=== PATIENT | male | born 1935 | race American Indian/Alaskan Native ===

== ENCOUNTER 2016-08-31 15:24 | Outpatient (CLI) | payer MEDICARE ==
--- NOTE | 2016-08-31 16:51 | XRay Report ---
LEFT FOREARM: History: Pain. AP and lateral views of the forearm demonstrate normal mineralization and contours for this patient's age. No destructive changes are noted and the adjacent soft tissues are normal. IMPRESSION: Normal left forearm.
--- NOTE | 2016-08-31 16:52 | XRay Report ---
LEFT SHOULDER: History: Shoulder pain. Routine views demonstrate normal bony and soft tissue structures with normal joint alignment of the shoulder. IMPRESSION: Normal study.
== END 2016-08-31 15:25 | disposition home or self-care (01) ==
LOC: XRAY 15:24
PROVIDERS: ATTEND Internal Medicine
DX: M25.512 Pain in left shoulder (principal); M79.632 Pain in left forearm

== ENCOUNTER 2017-08-16 06:08 | Observation (INO) | payer MEDICARE ==
[~2017-08-16 06:08] MED LIST: ANCEF/STERILE WATER 2 GM/20 ML 2 GM/20 ML SYRINGE IV NR; DILAUDID IV PRN; FLAGYL 500 MG/100 ML 500 MG/100 ML BAG IV NR; MARCAINE-EPI 0.5%-1:200,000 INFILTRATI ONE; NACL 0.9% IR ONE; XYLOCAINE 1% 20 mL IR ONE
[2017-08-16] MEDS ORDERED: MARCAINE-EPI 0.5%-1:200,000 INFILTRATI ONE ×2 (06:40→07:51)
[2017-08-16] MEDS ORDERED: XYLOCAINE 1% 20 mL ONE (06:40)
[2017-08-16] MEDS ORDERED: NACL BACTERIOSTATIC INFILTRATI ONE (06:45)
--- NOTE | 2017-08-16 07:02 | Anesthesia Consultation ---
Anesthesia Consult and Med Hx Date of service: 08/16/17 - Airway Anesthetic Teeth Evaluation: Poor ROM Head & Neck: Adequate Mental/Hyoid Distance: Adequate Mallampati Class: Class II Intubation Access Assessment: Probably Good - Pulmonary Exam CTA: Yes - Cardiac Exam Cardiac Exam: RRR - Pre-Operative Health Status ASA Pre-Surgery Classification: ASA3 Proposed Anesthetic Plan: General - Pulmonary Hx Smoking: Yes (QUIT OVER 30 YEARS AGO) - Cardiovascular System Hx Hypertension: Yes (1-2 YEARS) - Central Nervous System Hx Psychiatric Problems: No - Other Systems Hx Alcohol Use: No Hx Substance Use: No Hx Cancer: No
[2017-08-16] MEDS ORDERED: DILAUDID IV PRN ×3 (07:03→13:27)
[2017-08-16] MEDS ORDERED: ZOFRAN IV PRN (07:03)
[2017-08-16] MEDS ORDERED: PERCOCET 5/325 PO PRN (07:03)
--- NOTE | 2017-08-16 07:03 | Anesthesia Day of Surgery ---
Anesthesia Day of Surgery - Day of Surgery Patient Examined: Yes Patient H&P Reviewed: Yes Patient is NPO: Yes Cardiac Clearance: Yes
[2017-08-16] MEDS ORDERED: BLOXIVERZ ONE (07:43)
[2017-08-16] MEDS ORDERED: ZEMURON IV ONE (07:43)
[2017-08-16] MEDS ORDERED: SUBLIMAZE ONE (07:43)
[2017-08-16] MEDS ORDERED: ZOFRAN ONE (07:43)
[2017-08-16] MEDS ORDERED: ROBINUL ONE (07:43)
[2017-08-16] MEDS ORDERED: QUELICIN ONE (07:43)
[2017-08-16] MEDS ORDERED: DIPRIVAN 10 MG/ML IV ONE (07:44)
[2017-08-16] MEDS ORDERED: XYLOCAINE MPF 2% ONE (07:44)
[2017-08-16] MEDS ORDERED: NACL 0.9% IR ONE (07:51)
[2017-08-16] MEDS ORDERED: XYLOCAINE 1% 20 mL IR ONE (07:51)
[2017-08-16] MEDS ORDERED: NACL 0.9% 1000 ML 1,000 ML IV SCH (08:00)
[2017-08-16] MEDS ORDERED: FLAGYL 500 MG/100 ML 500 MG/100 ML BAG IV NR (08:00)
[2017-08-16] MEDS ORDERED: LOVENOX SUB-Q NR (08:00)
[2017-08-16] MEDS ORDERED: ANCEF/STERILE WATER 2 GM/20 ML 2 GM/20 ML SYRINGE IV NR (08:00)
[2017-08-16] MEDS ORDERED: ROBINUL IV NR (08:00)
[2017-08-16] MEDS ORDERED: NEURONTIN PO NR (08:00)
[2017-08-16] MEDS ORDERED: VERSED IV NR (08:00)
[2017-08-16] MEDS ORDERED: D50W (25GM) Syringe IV ONE (08:10)
[2017-08-16] MEDS ORDERED: NEO SYNEPHRINE/NS Syringe(OR USE) IV ONE (08:19)
[2017-08-16] MEDS ORDERED: NACL 0.9% 1000 ML 1,000 ML ONE (08:47)
--- NOTE | 2017-08-16 09:43 | Discharge Summary ---
Providers - Providers Date of Admission: 08/16/2017 Date of discharge: 08/16/17 Attending physician: VIRGEN CANTU Primary care physician: SELINA KOO Hospitalization Condition: Good Procedures: laparoscopic left inguinal hernia repair and ventral hernia repair Disposition: DC-01 TO HOME OR SELFCARE - Discharge Diagnoses (1) Inguinal hernia Status: Acute Qualifiers: Obstruction and gangrene presence: with obstruction but without gangrene Laterality: unilateral Recurrence: non-recurrent Qualified Code(s): K40.30 - Unilateral inguinal hernia, with obstruction, without gangrene, not specified as recurrent (2) Ventral hernia Status: Acute Qualifiers: Obstruction and gangrene presence: without obstruction or gangrene Qualified Code(s): K43.9 - Ventral hernia without obstruction or gangrene Core Measure Documentation - Palliative Care Palliative Care/ Comfort Measures: Not Applicable - Core Measures Any of the following diagnoses?: none Exam - Constitutional General appearance: Present: no acute distress, well-nourished - EENT Eyes: Present: PERRL, EOM intact ENT: hearing intact, clear oral mucosa, dentition normal - Neck Neck: Present: supple, normal ROM - Respiratory Respiratory: bilateral: CTA - Cardiovascular Rhythm: regular - Extremities Extremities: no ischemia, pulses intact, pulses symmetrical, No edema, normal temperature, normal color, Full ROM Peripheral Pulses: within normal limits - Abdominal General gastrointestinal: Present: soft, non-tender, normal bowel sounds Male genitourinary: Present: normal - Rectal Rectal Exam: deferred - Integumentary Integumentary: Present: clear, warm, dry - Musculoskeletal Musculoskeletal: strength equal bilaterally - Psychiatric Psychiatric: appropriate mood/affect Plan Activity: advance as tolerated (no heavy lifting) Weight Bearing Status: Full Weight Bearing Diet: regular Wound: keep clean and dry Follow up with: SELINA KOO MD [Primary Care Provider] - 7 Days VIRGEN CANTU MD [Staff Physician] - 3 Days Prescriptions: oxyCODONE /ACETAMINOPHEN [Percocet 5/325 mg] 1 tab PO ONCE PRN 10 Days #20 tablet PRN Reason: Pain, Moderate (4-6)
[2017-08-16] MEDS ORDERED: MORPHINE IV PRN (13:27)
[2017-08-16] MEDS: PERCOCET 5/325 PO PRN (16:50)
[2017-08-16] MEDS: LACTATED RINGERS 1,000 ML IV SCH (17:11)
[2017-08-16] MEDS ORDERED: MOBIC PO PRN ×2 (19:47→21:00)
[2017-08-16] MEDS: CARAFATE PO SCH (22:16)
[2017-08-16] MEDS: HumaLOG SUB-Q SCH (22:17)
[2017-08-17] MEDS: LACTATED RINGERS 1,000 ML IV SCH ×3 (03:36→17:14)
[2017-08-17] MEDS: HumaLOG SUB-Q SCH ×7 (03:38→23:35)
[2017-08-17 05:11] LABS: Basophils % (Auto) 0.5 % (0.0-1.8); Eosinophils % (Auto) 0.5 % (0.0-4.3); Hematocrit 46.7 % (35.5-45.6); Hemoglobin 15.6 gm/dl (11.8-15.2); Lymphocytes # (Auto) 1.4 K/mm3 (1.2-5.4); Lymphocytes % (Auto) 15.6 % (13.4-35.0); Mean Corpuscular HGB Conc 33 % (32-34); Mean Corpuscular Hemoglobin 29 pg (28-32); Mean Corpuscular Volume 88 fl (84-94); Monocytes # (Auto) 0.6 K/mm3 (0.0-0.8); Monocytes % (Auto) 6.9 % (0.0-7.3); Platelet Count 258 K/mm3 (140-440); Red Blood Count 5.29 M/mm3 (3.65-5.03)
[2017-08-17 05:18] LABS: BUN/Creatinine Ratio 14; Blood Urea Nitrogen 14 mg/dL (9-20); Calcium 9.5 mg/dL (8.4-10.2); Hemolysis Index 28
[2017-08-17] MEDS: CARAFATE PO SCH ×4 (05:52→23:33)
[2017-08-17] MEDS: PERCOCET 5/325 PO PRN (07:30)
--- NOTE | 2017-08-17 09:06 | Operative Report ---
PREOPERATIVE DIAGNOSIS: Left incarcerated inguinal hernia, large. POSTOPERATIVE DIAGNOSIS: Incarcerated left inguinal hernia with sigmoid colon incarceration into the hernial defect. PROCEDURE: Laparoscopic reduction of incarcerated hernia and subsequent extraperitoneal laparoscopic left inguinal hernia repair. SURGEON: Fidel Oglesby MD DIRECTOR OF STAFF DEVELOPMENT: Jose Francisco Hill. ANESTHESIA: General. DESCRIPTION OF PROCEDURE: The patient was placed on the operating table in the dorsal supine position and following satisfactory induction of general anesthesia, the abdomen, groin, and testicles were prepped using Hibiclens solution and scrubbed and draped in a sterile fashion. With the patient completely relaxed, we attempted to reduce the incarcerated hernia without success. We therefore proceeded to perform a diagnostic laparoscopy. A diagnostic laparoscopy was performed and it was noted that the patient after placing trocars inside the abdominal cavity and a video camera, the patient had incarcerated sigmoid colon into this area. We therefore just gently teased out with pulling off from the inside and pushing from the outside. We gently removed this segment of bowel from the incarcerated hernial defect. There was no evidence of any blood supply compromise. Therefore, this was an incarceration and no strangulation was noted. Following completion of the reduction, we then prepared to perform the hernia repair in an extraperitoneal fashion. The abdominal cavity was then desufflated. An incision was made at the umbilicus and the anterior rectus sheath was penetrated using a sharp skin knife and the rectus muscle was identified. The posterior rectus sheath was identified and a preperitoneal balloon dissector was placed on to the posterior sheath and pushed down to the level of the pubic symphysis. Following this, the balloon was insufflated until we could identify the anatomy through the balloon with the scope of the hernial defect areas. The balloon was then desufflated and removed and the preperitoneal space was then insufflated to 10 mmHg pressure. Following this, 2 other trocars were then placed in the patient's midline to access the hernia sac. The scope was placed and 2 graspers were placed and the hernia sac was pulled all the way back from the defect until the hernia sac was completely reduced. Care was taken to avoid any injury to the testicular vessels or to the spermatic cord. After the hernia sac was completely reduced, we then placed a piece of left-sided medial mesh on this and was fixed into place to Nasir's ligament and to the rectus fascia as well as laterally with tacking device. After this was accomplished, the preperitoneal space was desufflated keeping pressure on the fascial defect. We then turned our attention to repair of ventral hernia. The patient had a ventral hernia at the level of the umbilicus and this was opened up widely and the hernia sac was completely excised from around the fascial defect. The fascial defect was then closed using a running suture of #1 PDS. The skin at all sites were closed with interrupted simple sutures of 4-0 Monocryl. Steri-Strips were applied to the wound. The patient tolerated the procedure well and was sent to the recovery room in satisfactory condition. JOB# [id number] KINZA/MELA
[2017-08-17] MEDS: FLOMAX PO SCH (10:28)
[2017-08-17] MEDS: LOVENOX SUB-Q SCH (10:29)
[2017-08-17] MEDS: NORVASC PO SCH (10:29)
[2017-08-17] MEDS: ULTRAM PO SCH (10:30)
--- NOTE | 2017-08-17 15:45 | Event Note ---
Check on patient in early afternoon. Abd very distended and pt in alot of pain. Pt had voided very minimal since this am. he was straightcathed- 1200cc out. Lake was not left in place. He will have 6-8 hrs to produce urine himself. If he is unable to urinate he will have a lake placed and leg bag. He will follow up with his primary care doctor since he is followed for enlarged prostate with him. His home medication duteseride was ordered as non form and he make take his own medication.
[2017-08-17] MEDS: DUTASTERIDE 0.5 MG PO SCH (16:00)
[2017-08-17] MEDS: LANTUS SUB-Q SCH (23:25)
[2017-08-18] MEDS: HumaLOG SUB-Q SCH ×5 (03:09→23:04)
[2017-08-18] MEDS: CARAFATE PO SCH ×3 (05:21→18:31)
[2017-08-18 06:04] LABS: BUN/Creatinine Ratio 15; Blood Urea Nitrogen 15 mg/dL (9-20); Calcium 9.3 mg/dL (8.4-10.2); Hemolysis Index 1
[2017-08-18] MEDS: LOVENOX SUB-Q SCH (10:55)
[2017-08-18] MEDS: ULTRAM PO SCH (10:55)
[2017-08-18] MEDS: FLOMAX PO SCH (10:55)
[2017-08-18] MEDS: NORVASC PO SCH (10:55)
[2017-08-18] MEDS: DUTASTERIDE 0.5 MG PO SCH (10:56)
--- NOTE | 2017-08-18 15:12 | Progress Note ---
Assessment and Plan 81 y.o. male with hx of BPH s/p Lap Left inguinal hernia repair and ventral hernia repair POD 2 BPH- pt feeling followed as an outpt by primary care doctor. Taking duteseride. Continues to unable to empty bladder/void. Urology consult placed. Dr. Petty rec lake placement and pt will follow up with him. Will follow up recs. hx of DM: continue lantus 10units at night. HOld metoformin while in hosp. SSI HR likely elevated duet pain. Improving over course of day. dispo: goal for dc later today/tomorrow am Subjective Narrative: Pt was able to sleep overnight. After not urinating from 2pm to 8pm yesterday he was straight cath'd for 1200cc. Overnight night he did not have abdominal pain. He urinated once this am <50cc. This am bladder scan was 100cc. Later in the afternoon he was bladder scanned again >1000cc of fluid in bladder. He was straight cath'd again. He tolerated breakfast this am. Denies nausea and reflux. Objective Vital Signs - 12hr 08/18/17 08/18/17 08/18/17 04:38 07:56 07:57 Temperature 97.7 F 98.4 F Pulse Rate 96 H 99 H 98 H Respiratory 20 18 Rate Blood Pressure 167/86 Blood Pressure 159/88 [Left] O2 Sat by Pulse 96 100 100 Oximetry - General physical appearance well developed, well nourished, no distress - Respiratory normal expansion, normal respiratory effort - Abdomen soft, other (distended, soft, incsion sites cdi. tender suprapubic area. no hernias. bl testicles descended. ) - Genitourinary testicles present - Integumentary no rash, no growths, no abnormal pigmentation - Neurologic normal coordination, normal sensation - Musculoskeletal normal posture - Psychiatric oriented to time, oriented to person, oriented to place, speech is normal - Labs 08/17/17 04:20 08/18/17 05:02 Diabetes panel 08/18/17 Range/Units 05:02 Sodium 138 (137-145) mmol/L Potassium 4.0 (3.6-5.0) mmol/L Chloride 99.3 (98-107) mmol/L Carbon Dioxide 25 (22-30) mmol/L BUN 15 (9-20) mg/dL Creatinine 1.0 (0.8-1.5) mg/dL Glucose 136 H (75-100) mg/dL Calcium 9.3 (8.4-10.2) mg/dL Calcium panel 08/18/17 Range/Units 05:02 Calcium 9.3 (8.4-10.2) mg/dL Pituitary panel 08/18/17 Range/Units 05:02 Sodium 138 (137-145) mmol/L Potassium 4.0 (3.6-5.0) mmol/L Chloride 99.3 (98-107) mmol/L Carbon Dioxide 25 (22-30) mmol/L BUN 15 (9-20) mg/dL Creatinine 1.0 (0.8-1.5) mg/dL Glucose 136 H (75-100) mg/dL Calcium 9.3 (8.4-10.2) mg/dL Adrenal panel 08/18/17 Range/Units 05:02 Sodium 138 (137-145) mmol/L Potassium 4.0 (3.6-5.0) mmol/L Chloride 99.3 (98-107) mmol/L Carbon Dioxide 25 (22-30) mmol/L BUN 15 (9-20) mg/dL Creatinine 1.0 (0.8-1.5) mg/dL Glucose 136 H (75-100) mg/dL Calcium 9.3 (8.4-10.2) mg/dL
--- NOTE | 2017-08-18 17:00 | Consultation ---
History of Present Illness - Reason for Consult Consult date: 08/18/17 - History of Present Illness retention 81 y.o. male with hx of BPH s/p Lap Left inguinal hernia repair and ventral hernia repair POD 2 BPH- pt followed as an outpt by primary care doctor. Taking duteseride. Continues to unable to empty bladder/void. hx of DM: continue lantus 10units at night. 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 Serrano Medications and Allergies Allergies Allergy/AdvReac Type Severity Reaction Status Date / Time No Known Allergies Allergy Verified 08/12/17 15:31 Home Medications Medication Instructions Recorded Confirmed Last Taken Type Dutasteride 0.5 mg PO DAILY 08/10/17 08/12/17 08/14/17 History Furosemide [Lasix TAB] 20 mg PO DAILY 08/10/17 08/12/17 08/14/17 History Insulin Glargine,Hum.rec.anlog 0 units SUB-Q ACHS 08/10/17 08/12/17 08/14/17 History [Lantus Solostar] Meloxicam 15 mg PO PRN PRN 08/10/17 08/12/17 08/14/17 History Metformin HCl 500 mg PO DAILY 08/10/17 08/12/17 08/14/17 History Potassium Chloride [K-Dur] 10 meq PO QDAY 08/10/17 08/12/17 08/14/17 History amLODIPine [Norvasc] 10 mg PO DAILY 08/10/17 08/16/17 08/16/17 05:00 History traMADol [Ultram 50 MG tab] 50 mg PO DAILY PRN 08/10/17 08/12/17 08/14/17 History Ciprofloxacin/Ciprofloxa HCl 500 mg PO BID 08/16/17 08/16/17 08/13/17 History oxyCODONE /ACETAMINOPHEN [Percocet 1 tab PO ONCE PRN 10 Days #20 08/16/17 Unknown Rx 5/325 mg] tablet Active Meds: Active Medications Amlodipine Besylate (Norvasc) 10 mg PO DAILY ESTELA Last Admin: 08/18/17 10:55 Dose: 10 mg Enoxaparin Sodium (Lovenox) 40 mg SUB-Q QDAY [facility] Last Admin: 08/18/17 10:55 Dose: 40 mg Hydromorphone HCl (Dilaudid) 2 mg IV Q3H PRN PRN Reason: Pain , Severe (7-10) Hydromorphone HCl (Dilaudid) 0.25 mg IV Q3H PRN PRN Reason: Pain, Moderate (4-6) Last Admin: 08/16/17 20:42 Dose: 0.25 mg Sodium Chloride (Nacl 0.9% 1000 Ml) 1,000 mls @ 42 mls/hr IV DIRECT ESTELA Last Admin: 08/16/17 07:33 Dose: 42 mls/hr Lactated Ringer's (Lactated Ringers) 1,000 mls @ 150 mls/hr IV DIRECT ESTELA Last Infusion: 08/18/17 03:10 Dose: Infused Insulin Glargine (Lantus) 10 units SUB-Q QHS [facility] Last Admin: 08/17/17 23:25 Dose: 10 units Insulin Human Lispro (Humalog) 0 unit SUB-Q Q4HR [facility]; Protocol Last Admin: 08/18/17 14:34 Dose: Not Given Meloxicam (Mobic) 15 mg PO QDAY PRN PRN Reason: Pain Miscellaneous Medication (Dutasteride) 0.5 mg PO DAILY [facility] Last Admin: 08/18/17 10:56 Dose: 0.5 mg Morphine Sulfate (Morphine) 2 mg IV Q4H PRN PRN Reason: Pain, Moderate (4-6) Last Admin: 08/17/17 04:40 Dose: 2 mg Oxycodone/Acetaminophen (Percocet 5/325) 1 tab PO Q6H PRN PRN Reason: Pain, Moderate (4-6) Last Admin: 08/17/17 07:30 Dose: 1 tab Sucralfate (Carafate) 1 gm PO Q6HR [facility] Last Admin: 08/18/17 14:35 Dose: Not Given Tamsulosin HCl (Flomax) 0.4 mg PO QDAY [facility] Last Admin: 08/18/17 10:55 Dose: 0.4 mg Tramadol HCl (Ultram) 50 mg PO DAILY [facility] Last Admin: 08/18/17 10:55 Dose: 50 mg Exam - Constitutional Vitals: Temp Pulse Resp BP Pulse Ox 98 F 109 H 18 167/86 96 08/18/17 12:00 08/18/17 12:29 08/18/17 12:00 08/18/17 12:00 08/18/17 12:29 Results - Labs CBC & Chem 7: 08/17/17 04:20 08/18/17 05:02 Labs: Abnormal lab results 08/17/17 08/17/17 08/18/17 Range/Units 17:02 23:00 05:02 Glucose 136 H (75-100) mg/dL POC Glucose 227 H 208 H (70-105) 08/18/17 08/18/17 08/18/17 Range/Units 05:58 08:09 13:08 Glucose (75-100) mg/dL POC Glucose 144 H 148 H 187 H (70-105)
[2017-08-18] MEDS: LANTUS SUB-Q SCH (23:04)
[2017-08-19] MEDS: CARAFATE PO SCH ×4 (01:01→18:29)
[2017-08-19] MEDS: HumaLOG SUB-Q SCH ×6 (03:00→22:34)
[2017-08-19] MEDS: LACTATED RINGERS 1,000 ML IV SCH (03:28)
[2017-08-19] MEDS: NORVASC PO SCH (09:21)
[2017-08-19] MEDS: FLOMAX PO SCH (09:21)
[2017-08-19] MEDS: ULTRAM PO SCH (09:21)
[2017-08-19] MEDS: DUTASTERIDE 0.5 MG PO SCH (09:22)
[2017-08-19] MEDS: LOVENOX SUB-Q SCH (09:22)
--- NOTE | 2017-08-19 11:55 | Progress Note ---
Assessment and Plan 81 y.o. male with hx of BPH s/p Lap Left inguinal hernia repair and ventral hernia repair POD 4 BPH- pt feeling followed as an outpt by primary care doctor. Taking duteseride. Continues to unable to empty bladder/void. Urology consult placed. Dr. Petty rec lake placement and pt will follow up with him. Will follow up recs. --> lake placed overnight. Pt no longer has abdominal pain. He will be discharged with the lake leg bag after teaching is complete. He is feeling much better. He understands to follow up with the urologist as an output. hx of DM: continue lantus 10units at night. HOld metoformin while in hosp. SSI epgiastric burning: carafate dispo: dc today I spoke with his daughter on the phone regarding the plan of care. He was concerned because her father told her he was seen by an oncologist. I told her only myself and the urologist has seen the patient. She was concerned he has not been recieving his medications even thought he brought them with him. I informed her he is receiving all of his medications. The one medication he is taking of his own is a med the hospital does not have but the nurse is regulating the medication. He cannot take his own medications from home without the nurse being aware. She understands Subjective Narrative: Pt feeling better this am. much less abdominal pain. He is complaining of acid reflux. He tolerate toast this am. Lake was placed last night per Urology recs. He has not been taught how to empty lake bag yet. afebrile. Objective Vital Signs - 12hr 08/19/17 08/19/17 08/19/17 00:22 00:28 05:21 Temperature 98.4 F 98.5 F Pulse Rate 90 95 H Respiratory 20 20 Rate Blood Pressure 146/81 159/72 O2 Sat by Pulse 94 96 Oximetry 08/19/17 08/19/17 08/19/17 05:22 07:04 09:21 Temperature 99.1 F Pulse Rate 96 H 95 H Respiratory 20 Rate Blood Pressure 168/76 168/76 O2 Sat by Pulse 98 95 Oximetry 08/19/17 11:23 Temperature 98.0 F Pulse Rate 100 H Respiratory 20 Rate Blood Pressure 143/85 O2 Sat by Pulse 97 Oximetry - General physical appearance well developed, well nourished, no distress - Respiratory normal expansion, normal respiratory effort - Abdomen soft, other (minimally distended, tender at xiphoid process. umbilical dressing removed. ecchymosis inferior to wound. incision sites cdi. ) - Genitourinary normal penis, other (lake in place) - Integumentary no rash, no growths - Neurologic normal coordination, normal sensation - Musculoskeletal normal posture - Psychiatric oriented to time, oriented to person, oriented to place, speech is normal - Labs 08/17/17 04:20 08/18/17 05:02
--- NOTE | 2017-08-19 12:52 | Discharge Summary ---
Providers - Providers Date of Admission: 08/16/17 08:44 Attending physician: VIRGEN CANTU 08/18/17 14:34 Consult to Physician [CONS] Urgent Comment: Consulting Provider: KAILEY BLACK Physician Instructions: Reason For Exam: unable to void Primary care physician: SELINA KOO Hospitalization Condition: Good Procedures: Laparoscopic ventral hernia repair and lap inguinal hernia repair Hospital course: 81 y.o. male with hx fo BPH and DM presented to the hospital for Laparoscopic ventral hernia repair and lap inguinal hernia repair . On POD 1-3 he could not void on his own. He was straight cath'd several times. Urology was consulted and placed a lake. He will continue to take his duteseride at home as he has been getting in the hospital. He will follow up with the urologist as an outpt. He was discharged with a lake leg bag. He had proper teaching prior to discharge. He had epigastric pain with reflux. He was given carafate in the hospital. During admission his bp and HR were elevated.These changes in his vs are likley due to becoming uncomfortable since he could not void. ONce the catheter was placed his vs improved. Disposition: DC-01 TO HOME OR SELFCARE Core Measure Documentation - Palliative Care Palliative Care/ Comfort Measures: Not Applicable - Core Measures Any of the following diagnoses?: none Exam - Physical Exam Narrative exam: Gen: A+Ox3 Lungs: equal rise and fall of chest abd: soft, tender at xiphoid process. no masses. tender at incision sites. umbilical inicision cdi. Lake in place - Constitutional Vitals: Temp Pulse Resp BP Pulse Ox 98.0 F 100 H 20 143/85 97 08/19/17 11:23 08/19/17 11:23 08/19/17 11:23 08/19/17 11:23 08/19/17 11:23 Plan Activity: other (no lifting >15lbs for 6 weeks. ) Wound: other (May shower. no soaking in the tub. The small white bandaids will fall of over time. ) Special Instructions: no heavy lifting, other (empty leg bag as it becomes full. If the urine turns red call the urology doctor. If you have to cough or sneeze, hold a pillow against your belly. ) Follow up with: SELINA KOO MD [Primary Care Provider] - 7 Days KAILEY BLACK MD [Staff Physician] - 7 Days VIRGEN CANTU MD [Staff Physician] - 7 Days Forms: Outpatient Surgery DC Inst. Prescriptions: oxyCODONE /ACETAMINOPHEN [Percocet 5/325 mg] 1 tab PO ONCE PRN 10 Days #20 tablet PRN Reason: Pain, Moderate (4-6)
[2017-08-19] MEDS ORDERED: HURRICAINE ONE 20% TOPICAL SPRAY MM PRN (12:58)
--- NOTE | 2017-08-19 13:22 | Event Note ---
Just received updates from the patient's nurse Reena. Patient is having problems swallowing. He was started on carafate but he states it not help. he feels there is scrapping down his throat when he drinks water or tries to eat. I ordered hurricane spray. The patient does not want to be discharged because he feels something is wrong. Reena told him his throat is sore because of the surgery but he does not believe her. An abdominal xr has been ordered. Medicine will be consulted for his dysphagia work up and feeling not well.
[2017-08-19] MEDS ORDERED: PROTONIX IV STA (13:25)
[2017-08-19] MEDS ORDERED: LASIX PO ONE (14:00)
--- NOTE | 2017-08-19 14:40 | XRay Report ---
ABDOMEN, 2 views: History: Recent ventral inguinal hernia repair, pain. There is no evidence of free air beneath the diaphragms. The gas pattern within the abdomen is unremarkable. There is no evidence of bowel dilatation, significant air-fluid levels, or pathologic calcifications. Organ shadows are unremarkable. There is moderate stool in the proximal colon. IMPRESSION: Unremarkable abdomen.
[2017-08-19] MEDS: GLUCOPHAGE PO SCH (14:59)
[2017-08-19] MEDS: PEPCID IV SCH ×2 (14:59→22:09)
[2017-08-19 17:08] LABS: Basophils % (Auto) 0.6 % (0.0-1.8); Eosinophils # (Auto) 0.1 K/mm3 (0.0-0.4); Eosinophils % (Auto) 1.8 % (0.0-4.3); Hematocrit 39.8 % (35.5-45.6); Hemoglobin 13.1 gm/dl (11.8-15.2); Lymphocytes # (Auto) 1.1 K/mm3 (1.2-5.4); Lymphocytes % (Auto) 14.4 % (13.4-35.0); Mean Corpuscular HGB Conc 33 % (32-34); Mean Corpuscular Hemoglobin 29 pg (28-32); Mean Corpuscular Volume 89 fl (84-94); Monocytes # (Auto) 0.7 K/mm3 (0.0-0.8); Monocytes % (Auto) 9.2 % (0.0-7.3); Platelet Count 221 K/mm3 (140-440); Red Blood Count 4.49 M/mm3 (3.65-5.03); Red Cell Distribution Width 14.1 % (13.2-15.2)
[2017-08-19 17:17] LABS: BUN/Creatinine Ratio 10; Blood Urea Nitrogen 11 mg/dL (9-20); Calcium 9.2 mg/dL (8.4-10.2); Hemolysis Index 4
[2017-08-19] MEDS: LANTUS SUB-Q SCH (21:53)
[2017-08-19] MEDS: PERCOCET 5/325 PO PRN (21:56)
[2017-08-20] MEDS: HumaLOG SUB-Q SCH ×4 (02:23→22:51)
[2017-08-20] MEDS: CARAFATE PO SCH ×5 (06:05→23:07)
[2017-08-20] MEDS: PERCOCET 5/325 PO PRN (06:06)
[2017-08-20] MEDS: NORVASC PO SCH (10:16)
[2017-08-20] MEDS: GLUCOPHAGE PO SCH (10:16)
[2017-08-20] MEDS: LASIX PO SCH (10:16)
[2017-08-20] MEDS: DUTASTERIDE 0.5 MG PO SCH (10:17)
[2017-08-20] MEDS: PEPCID IV SCH ×2 (10:25→22:48)
[2017-08-20] MEDS: LOVENOX SUB-Q SCH (10:27)
--- NOTE | 2017-08-20 12:15 | Progress Note ---
Assessment and Plan 81 y.o. male with hx of BPH s/p Lap Left inguinal hernia repair and ventral hernia repair POD 5 BPH- pt feeling followed as an outpt by primary care doctor. Taking duteseride. Continues to unable to empty bladder/void. Urology consult placed. Dr. Petty rec lake placement and pt will follow up with him. Will follow up recs. --> lake placed overnight. Pt no longer has abdominal pain. He will be discharged with the lake leg bag after teaching is complete. He is feeling much better. He understands to follow up with the urologist as an output. hx of DM: continue lantus 10units at night. HOld metoformin while in hosp. SSI epgiastric burning: carafate -GI consulted. rec. diflucan started to empirically treat for canadiasis since his symptoms closely resemble this. pt would like to defer an EGD at this time. Give first IV dose today then start PO dose tomorrow. Full liquids. if he can tolerate the fulls and diflucan po tomorrow, he can be discharge home tomorrow. Subjective Narrative: pt has pain with swallowing. he is able to drink liquids but hurts with solids. He feels like burning in his throat and esophagus. +flatus. no bm. denies abdominal pain. Objective Vital Signs - 12hr 08/20/17 08/20/17 05:28 07:07 Temperature 98.7 F 98.4 F Pulse Rate 91 H 86 Respiratory 20 18 Rate Blood Pressure 161/83 143/72 O2 Sat by Pulse 91 93 Oximetry - General physical appearance well developed, well nourished - Respiratory normal expansion, normal respiratory effort - Abdomen soft, other (no guarding no rebound non tender. 2 small 1cm blisters on abdomen from adhesive tape. ecchymosis inferior to umbilical incision. incsiions with steristrips cdi. tender at umblicial site. lake in place. ) - Genitourinary normal penis - Neurologic normal coordination, normal sensation - Musculoskeletal normal posture - Psychiatric oriented to time, oriented to person, oriented to place - Labs 08/20/17 13:57 08/20/17 13:57 Diabetes panel 08/19/17 Range/Units 16:05 Sodium 141 (137-145) mmol/L Potassium 4.4 (3.6-5.0) mmol/L Chloride 103.6 (98-107) mmol/L Carbon Dioxide 28 (22-30) mmol/L BUN 11 (9-20) mg/dL Creatinine 1.1 (0.8-1.5) mg/dL Glucose 95 (75-100) mg/dL Calcium 9.2 (8.4-10.2) mg/dL Calcium panel 08/19/17 Range/Units 16:05 Calcium 9.2 (8.4-10.2) mg/dL Pituitary panel 08/19/17 Range/Units 16:05 Sodium 141 (137-145) mmol/L Potassium 4.4 (3.6-5.0) mmol/L Chloride 103.6 (98-107) mmol/L Carbon Dioxide 28 (22-30) mmol/L BUN 11 (9-20) mg/dL Creatinine 1.1 (0.8-1.5) mg/dL Glucose 95 (75-100) mg/dL Calcium 9.2 (8.4-10.2) mg/dL Adrenal panel 08/19/17 Range/Units 16:05 Sodium 141 (137-145) mmol/L Potassium 4.4 (3.6-5.0) mmol/L Chloride 103.6 (98-107) mmol/L Carbon Dioxide 28 (22-30) mmol/L BUN 11 (9-20) mg/dL Creatinine 1.1 (0.8-1.5) mg/dL Glucose 95 (75-100) mg/dL Calcium 9.2 (8.4-10.2) mg/dL
[2017-08-20] MEDS ORDERED: CEPHULAC PO PRN (13:25)
--- NOTE | 2017-08-20 13:55 | Consultation ---
History of Present Illness - Reason for Consult Consult date: 08/20/17 Odynophagia Requesting physician: VIRGEN CANTU - History of Present Illness Mr. Whitney is an 81 yo [place] man who was admitted for left inguinal and ventral abdominal hernia repair on August 17. He had problems with urinary retention postoperatively for which she has an indwelling Garcia. We are consulted because of complaints of a scraping feeling in his substernal region and especially in the lower aspect of the substernal region with by mouth intake. This is worse with solid food. It is also worse with acidic foods. He has no true dysphagia. He denies prior similar symptoms. He denies heartburn or reflux or regurgitation. There is no abdominal pain nausea or vomiting. Patient usually has bowel movements on a daily basis, but has not had one for over a week. There is no history of GI bleed. Of note, patient has a history of diabetes. Past History Past Medical History: diabetes Past Surgical History: hernia repair Social history: no significant social history Family history: no significant family history Medications and Allergies Allergies Allergy/AdvReac Type Severity Reaction Status Date / Time No Known Allergies Allergy Verified 08/12/17 15:31 Home Medications Medication Instructions Recorded Confirmed Last Taken Type Dutasteride 0.5 mg PO DAILY 08/10/17 08/12/17 08/14/17 History Furosemide [Lasix TAB] 20 mg PO DAILY 08/10/17 08/12/17 08/14/17 History Insulin Glargine,Hum.rec.anlog 0 units SUB-Q ACHS 08/10/17 08/12/17 08/14/17 History [Lantus Solostar] Meloxicam 15 mg PO PRN PRN 08/10/17 08/12/17 08/14/17 History Metformin HCl 500 mg PO DAILY 08/10/17 08/12/17 08/14/17 History Potassium Chloride [K-Dur] 10 meq PO QDAY 08/10/17 08/12/17 08/14/17 History amLODIPine [Norvasc] 10 mg PO DAILY 08/10/17 08/16/17 08/16/17 05:00 History traMADol [Ultram 50 MG tab] 50 mg PO DAILY PRN 08/10/17 08/12/17 08/14/17 History Ciprofloxacin/Ciprofloxa HCl 500 mg PO BID 08/16/17 08/16/17 08/13/17 History oxyCODONE /ACETAMINOPHEN [Percocet 1 tab PO ONCE PRN 10 Days #20 08/16/17 Unknown Rx 5/325 mg] tablet Active Meds: Active Medications Amlodipine Besylate (Norvasc) 10 mg PO DAILY ON LICENSE OF [facility] Last Admin: 08/20/17 10:16 Dose: 10 mg Benzocaine (Hurricaine One 20% Topical [place]) 1 spray MM TID PRN PRN Reason: Dyspepsia Last Admin: 08/19/17 15:00 Dose: 1 spray Enoxaparin Sodium (Lovenox) 40 mg SUB-Q QDAY ON LICENSE OF [facility] Last Admin: 08/20/17 10:27 Dose: 40 mg Famotidine (Pepcid) 20 mg IV BID ON LICENSE OF [facility] Last Admin: 08/20/17 10:25 Dose: 20 mg Furosemide (Lasix) 20 mg PO QDAY ON LICENSE OF [facility] Last Admin: 08/20/17 10:16 Dose: 20 mg Insulin Glargine (Lantus) 10 units SUB-Q QHS ON LICENSE OF [facility] Last Admin: 08/19/17 21:53 Dose: 10 units Insulin Human Lispro (Humalog) 0 unit SUB-Q Q4HR ON LICENSE OF [facility]; Protocol Last Admin: 08/20/17 07:24 Dose: Not Given Lactulose (Cephulac) 20 gm PO QDAY PRN PRN Reason: Constipation Meloxicam (Mobic) 15 mg PO QDAY PRN PRN Reason: Pain Metformin HCl (Glucophage) 500 mg PO DAILY ON LICENSE OF [facility] Last Admin: 08/20/17 10:16 Dose: 500 mg Miscellaneous Medication (Dutasteride) 0.5 mg PO DAILY ON LICENSE OF [facility] Last Admin: 08/20/17 10:17 Dose: 0.5 mg Morphine Sulfate (Morphine) 2 mg IV Q4H PRN PRN Reason: Pain, Moderate (4-6) Last Admin: 08/17/17 04:40 Dose: 2 mg Oxycodone/Acetaminophen (Percocet 5/325) 1 tab PO Q6H PRN PRN Reason: Pain, Moderate (4-6) Last Admin: 08/20/17 06:06 Dose: 1 tab Sucralfate (Carafate) 1 gm PO Q6HR ON LICENSE OF [facility] Last Admin: 08/20/17 13:02 Dose: 1 gm Review of Systems All systems: negative (as noted) Exam - Constitutional Vitals: Temp Pulse Resp BP Pulse Ox 98.3 F 96 H 20 164/85 96 08/20/17 11:25 08/20/17 11:25 08/20/17 11:25 08/20/17 11:25 08/20/17 11:25 General appearance: Present: no acute distress, other - EENT Eyes: Present: PERRL, EOM intact ENT: hearing intact - Respiratory Respiratory effort: normal Respiratory: bilateral: CTA - Cardiovascular Rhythm: regular Heart Sounds: Present: S1 & S2 - Extremities Extremities: No edema - Abdominal General gastrointestinal: Present: soft, tender (Mild, diffuse) Results - Labs CBC & Chem 7: 08/19/17 16:05 08/19/17 16:05 Labs: Abnormal lab results 08/19/17 08/19/17 08/19/17 Range/Units 14:53 16:05 18:05 [place] % (Auto) 9.2 H (0.0-7.3) % Lymph # 1.1 L (1.2-5.4) K/mm3 Seg Neutrophils % 74.0 H (40.0-70.0) % POC Glucose 118 H 254 H (70-105) 08/19/17 08/20/17 08/20/17 Range/Units 21:39 06:26 11:36 [place] % (Auto) (0.0-7.3) % Lymph # (1.2-5.4) K/mm3 Seg Neutrophils % (40.0-70.0) % POC Glucose 189 H 67 L 155 H (70-105) Assessment and Plan 1. Odynophagia - etiology unclear, but this is most commonly due to infectious esophagitis. Patient had no symptoms prior to surgery, but unless the patient has had some sort of a neuropathic exacerbation of underlying irritable bowel syndrome precipitated by the surgery, it would be difficult to attribute this to surgical intervention. Patient most likely does have underlying irritable bowel syndrome and visceral hypersensitivity given his long-standing history of bowel movements on an every other day basis. In order to effectively address odynophagia, an upper endoscopy would be appropriate, but it is contraindicated in the setting of his recent surgery since there is a possibility that abdominal distention from air insufflation could affect healing. - Discussed options with patient and with Dr. Serrano. Options are empiric treatment with Diflucan, even though oropharynx does not show thrush, versus endoscopy. We will proceed with empiric treatment with Diflucan for now. If he fails to improve, endoscopic evaluation and then, if negative, use of neuro modulating agents would be appropriate. 2. Constipation-patient has underlying IBS-C, exacerbated by recent surgery. Black sedatives would be appropriate. With effective laxation, his odynophagia might even improved to some extent.
[2017-08-20] MEDS ORDERED: DULCOLAX PR PRN (14:11)
[2017-08-20] MEDS ORDERED: MILK OF MAGNESIA PO PRN (14:11)
[2017-08-20 14:33] LABS: Basophils % (Auto) 0.7 % (0.0-1.8); Eosinophils # (Auto) 0.1 K/mm3 (0.0-0.4); Eosinophils % (Auto) 2.8 % (0.0-4.3); Hemoglobin 14.3 gm/dl (11.8-15.2); Lymphocytes # (Auto) 0.9 K/mm3 (1.2-5.4); Lymphocytes % (Auto) 17.1 % (13.4-35.0); Mean Corpuscular HGB Conc 33 % (32-34); Mean Corpuscular Hemoglobin 30 pg (28-32); Mean Corpuscular Volume 90 fl (84-94); Monocytes # (Auto) 0.4 K/mm3 (0.0-0.8); Monocytes % (Auto) 7.7 % (0.0-7.3); Platelet Count 233 K/mm3 (140-440); Red Blood Count 4.77 M/mm3 (3.65-5.03); Red Cell Distribution Width 14.1 % (13.2-15.2)
[2017-08-20 14:42] LABS: BUN/Creatinine Ratio 9; Blood Urea Nitrogen 10 mg/dL (9-20); Calcium 8.7 mg/dL (8.4-10.2); Hemolysis Index 6
[2017-08-20] MEDS ORDERED: DIFLUCAN 200 MG/100 ML BAG IV ONE (15:00)
[2017-08-20] MEDS: K-DUR PO SCH (20:38)
[2017-08-20] MEDS ORDERED: PROTONIX IV SCH (22:00)
[2017-08-20] MEDS: LANTUS SUB-Q SCH (22:48)
[2017-08-21] MEDS: HumaLOG SUB-Q SCH ×2 (03:35→12:43)
[2017-08-21] MEDS: CARAFATE PO SCH ×2 (07:08→12:41)
[2017-08-21] MEDS ORDERED: DIFLUCAN PO SCH (10:00)
[2017-08-21] MEDS: K-DUR PO SCH (10:40)
[2017-08-21] MEDS: PEPCID IV SCH (10:40)
[2017-08-21] MEDS: GLUCOPHAGE PO SCH (10:42)
[2017-08-21] MEDS: NORVASC PO SCH (10:43)
[2017-08-21] MEDS: LOVENOX SUB-Q SCH (10:43)
[2017-08-21] MEDS: LASIX PO SCH (10:43)
[2017-08-21] MEDS: DUTASTERIDE 0.5 MG PO SCH (10:53)
--- NOTE | 2017-08-21 14:54 | Progress Note ---
Assessment and Plan 81 y.o. male with hx of BPH s/p Lap Left inguinal hernia repair and ventral hernia repair POD 5 BPH- pt feeling followed as an outpt by primary care doctor. Taking duteseride. Continues to unable to empty bladder/void. Urology consult placed. Dr. Petty rec lake placement and pt will follow up with him. Will follow up recs. --> lake placed overnight. Pt no longer has abdominal pain. He will be discharged with the lake leg bag after teaching is complete. He is feeling much better. He understands to follow up with the urologist as an output. hx of DM: continue lantus 10units at night. HOld metoformin while in hosp. SSI epgiastric burning: carafate -GI consulted. rec. diflucan started to empirically treat for canadiasis since his symptoms closely resemble this. pt would like to defer an EGD at this time. Give first IV dose today then start PO dose tomorrow. Full liquids. -Pt tolerated diflucan tab and fulls. He will be discharged today with diflucan called into his pharmacy by Dr. Huddleston. Subjective Narrative: Pt feeling ok today. he abd whiting at the site of the skin blisters. He tolerated the diflucan pill but had difficulty with the cut pill of the KCL. The Kcl he takes at home is much smaller. He drank the strawberry ensure and tolerated well. He had a bm last night and feels much better. Objective Vital Signs - 12hr 08/21/17 08/21/17 08/21/17 04:39 04:40 07:56 Temperature 98.7 F Pulse Rate 84 84 85 Respiratory 17 Rate Blood Pressure 159/82 Blood Pressure [Left] O2 Sat by Pulse 95 96 98 Oximetry 08/21/17 08/21/17 08:00 12:00 Temperature 98.6 F 98 F Pulse Rate 88 93 H Respiratory 18 18 Rate Blood Pressure Blood Pressure 151/65 162/82 [Left] O2 Sat by Pulse 98 Oximetry - General physical appearance well developed, well nourished, no distress - Respiratory normal expansion, normal respiratory effort - Abdomen soft, other (2 small 1cm blisters on abd. mid abd. ecchymosis inferior to umb. tender at umbilical incision. incision sites cdi) - Neurologic normal coordination, normal sensation - Musculoskeletal normal posture - Psychiatric oriented to time, oriented to person, oriented to place, speech is normal - Labs 08/20/17 13:57 08/20/17 13:57
[2017-08-21 16:32] VITALS: BP 158/80
== END 2017-08-21 16:50 | disposition home or self-care (01) ==
LOC: OR 06:08 → INTOOBSV 08:44 → 3B-SURG 08:44
PROVIDERS: ADMIT Specialist; ATTEND Specialist
DX: K40.30 Unilateral inguinal hernia, with obstruction, without gangrene, not specified as recurrent (principal); I10 Essential (primary) hypertension; E11.9 Type 2 diabetes mellitus without complications
CPT/HCPCS: 36415; 49650; 74019; 80048; 82962; 85025; 96365; 96372; 96375; 96376; C1726; C1781; G0378; J0330; J0690; J1170; J1450; J1650; J2250; J2270; J2370; J2405; J2704; J2710; J3010; J7030; J7120; J1815